=== PATIENT | female | born 1980 | race African-American/Black ===

== ENCOUNTER 2021-12-14 17:21 | Emergency (ER) | payer SELFPAY ==
[~2021-12-14] VITALS: Ht 172.7 cm; Wt 89.0 kg
[2021-12-14 17:43] VITALS: BP 128/72
== END 2021-12-14 23:25 | disposition left against medical advice (07) ==
LOC: ER 17:21
DX: Z53.21 Procedure and treatment not carried out due to patient leaving prior to being seen by health care provider (principal)